=== PATIENT | male | born 1970 | race Caucasian/White ===

== ENCOUNTER 2016-05-29 10:46 | Day surgery (SDC) | payer OTHER ==
[~2016-05-29] VITALS: Ht 175.9 cm; Wt 108.4 kg
[~2016-05-29 10:46] MED LIST: AMITRIPTYLINE H10 MG PO; BUSPIRONE HCL10 MG PO; DIAZEPAM10 MG PO; DOXYCYCLINE HY100 MG PO; MOTRIN800 MG PO; PERCOCET 10/1 TABLET PO; PREDNISONE20 MG PO; SEROQUEL200 MG PO; TYLENOL WITH C1 EACH PO
[2016-05-31] MEDS ORDERED: VALIUM10 MG PO (11:21)
== END 2016-05-29 12:23 | disposition home or self-care (01) ==
LOC: PAIN 10:46 → SDC 11:15 → PAIN 11:15
DX: M47.896 Other spondylosis, lumbar region (principal); M51.16 Intervertebral disc disorders with radiculopathy, lumbar region; F41.9 Anxiety disorder, unspecified; F31.11 Bipolar disorder, current episode manic without psychotic features, mild; F17.200 Nicotine dependence, unspecified, uncomplicated
CPT/HCPCS: J1030; J2250; J3010; S0020

== ENCOUNTER 2016-06-05 07:46 | Day surgery (SDC) | payer OTHER ==
[~2016-06-05] VITALS: Ht 175.9 cm; Wt 108.4 kg
[~2016-06-05 07:46] MED LIST changes: +VALIUM10 MG PO
== END 2016-06-05 09:35 | disposition home or self-care (01) ==
LOC: PAIN 07:46 → SDC 08:15 → PAIN 09:35
PROC: 3E0T33Z Introduction of Anti-inflammatory into Peripheral Nerves and Plexi, Percutaneous Approach (ICD-10-PCS; principal; 2016-06-05)
PROC: 3E0T3CZ (ICD-10-PCS; principal; 2016-06-05)
DX: M47.26 Other spondylosis with radiculopathy, lumbar region (principal); M47.27 Other spondylosis with radiculopathy, lumbosacral region; F41.9 Anxiety disorder, unspecified; M99.83 Other biomechanical lesions of lumbar region; F17.200 Nicotine dependence, unspecified, uncomplicated; F12.10 Cannabis abuse, uncomplicated; F31.9 Bipolar disorder, unspecified
CPT/HCPCS: J1030; J2250; J3010; S0020

== ENCOUNTER 2016-12-06 09:25 | Day surgery (SDC) | payer OTHER ==
[~2016-12-06] VITALS: Ht 175.9 cm; Wt 122.5 kg
[~2016-12-06 09:25] MED LIST changes: -AMITRIPTYLINE H10 MG PO; +ELAVIL25 MG PO
== END 2016-12-06 10:54 | disposition home or self-care (01) ==
LOC: PAIN 09:25 → SDC 10:15 → PAIN 10:15
DX: M47.26 Other spondylosis with radiculopathy, lumbar region (principal); M51.16 Intervertebral disc disorders with radiculopathy, lumbar region; M48.06 Spinal stenosis, lumbar region; G58.8 Other specified mononeuropathies; M51.24 Other intervertebral disc displacement, thoracic region; F31.11 Bipolar disorder, current episode manic without psychotic features, mild; E66.9 Obesity, unspecified; F17.210 Nicotine dependence, cigarettes, uncomplicated; K21.9 Gastro-esophageal reflux disease without esophagitis
CPT/HCPCS: J1030; J2250; J3010; S0020